=== PATIENT | female | born 1975 | race Two or more races ===

== ENCOUNTER 2018-04-25 06:13 | Day surgery (SDC) | payer OTHER ==
[~2018-04-25] VITALS: Ht 154.9 cm; Wt 58.1 kg
[~2018-04-25 06:13] MED LIST: BUPIVACAINE MPF 0.5% 30 ML VIAL. ONE; EPINEPHrine VIAL 30 MG/30 ML VIAL ONE; IBUP200T58 PO; LIDOCAINE 1% PF 30 ML VIAL. ONE
[2018-04-25 06:32] LABS: U PREG PATIENT NEGATIVE (NEG)
[2018-04-25] MEDS ORDERED: MORPHINE SULFATE 2 MG/ML VIAL. IV PRN (07:00)
[2018-04-25] MEDS ORDERED: fentaNYL PF VIAL 100 MCG/2 ML VIAL IV PRN ×2 (07:00)
[2018-04-25] MEDS ORDERED: HYDROmorphone 2 MG/ML VIAL IV PRN (07:00)
[2018-04-25] MEDS ORDERED: PROCHLORPERAZINE 10 MG/2 ML VIAL. IV PRN (07:00)
[2018-04-25] MEDS ORDERED: ONDANSETRON PF 4 MG/2 ML VIAL. IV PRN (07:00)
[2018-04-25] MEDS ORDERED: IV RINGERS,LACTATED 1000ML 1,000 ML IV SCH (07:00)
[2018-04-25] MEDS ORDERED: LIDOCAINE 1% PF 2 ML VIAL. ID PRN (07:00)
[2018-04-25] MEDS ORDERED: MIDAZOLAM HCL/PF 2 MG/2 ML VIAL. ONE (07:16)
[2018-04-25] MEDS ORDERED: fentaNYL PF VIAL 100 MCG/2 ML VIAL ONE ×2 (07:16→08:34)
[2018-04-25] MEDS ORDERED: LIDOCAINE 2% PF 5 ML VIAL. ONE (07:16)
[2018-04-25] MEDS ORDERED: ONDANSETRON PF 4 MG/2 ML VIAL. ONE (07:16)
[2018-04-25] MEDS ORDERED: PROPOFOL 20 ML IV ONE (07:16)
[2018-04-25] MEDS ORDERED: DEXAMETHASONE SOD PHOS 20 MG/5 ML VIAL. ONE (07:16)
--- NOTE | 2018-04-25 07:32 | DISCH ---
DISCHARGE INSTRUCTIONS Condition on Discharge Condition on Discharge: Stable Activity After Discharge Activity Instructions for Disc: Other ROM activity Other activity instructions: frequent ROM at knee Bathing Instructions: Shower-keep dressing dry Weight Bearing Status after Di: Non weight bearing Diet after Discharge Diet after Discharge: Regular Wound Incision Care Wound/Incision Care: Ice to area for comfort, Keep wound/cast CDI, Keep wound elevated, Change dressing Other wound/incision instructi: ok to change dressing after [address] after DC Call your doctor for: Concerns you may have Follow-Up Follow up with: Adria in 2 wks LARRY FELDER II, MD Apr 25, 2018 07:32
[2018-04-25] MEDS ORDERED: KETOROLAC 30 MG/ML INJ FOR OR. INJ ONE (08:02)
--- NOTE | 2018-04-25 08:40 | PDOC4 ---
Operative Note Operative Note Date of procedure: 04/25/2018 Surgeon: Dionisio Felder Preoperative diagnosis: Right knee acute cartilage injury Postoperative diagnosis: Same Procedure performed: Right knee arthroscopic microfracture of medial femoral condyle Anesthesia: Gen. Complications: None Blood loss: 5 mL Tourniquet time: Less than 30 minutes Findings: #1 intact cartilage throughout patellofemoral and lateral compartment #2 intact medial and lateral menisci without pathology #3 intact cruciate ligaments #4 No loose bodies #5 3 x 3 mm area of fibrotic appearing cartilage medial femoral condyle at about 10 of flexion #6 8 x 4 mm area of loose cartilage flap and exposed bone at about 60 of flexion at medial femoral condyle Reason for procedure: Patient is a very pleasant 42-year-old active female who had an acute knee injury while playing sports. I seen and evaluated her my outpatient orthopedic surgery clinic. Physical therapy and injections as well as anti-inflammatories did not afford her any relief and we had a discussion of the risks, benefits, alternatives to the above surgery procedure after MRI been obtained. Clinical and radiographic evidence were consistent with the preoperative diagnosis. She wished to proceed. Description of procedure: Patient was greeted in the preoperative area by myself for the correct extremity was verified and marked. She is taken to the operative suite and her antibiotics started as she was brought back. Once in the operating room, she was transferred gently supine to the operative room table and secured the bed with all pressure points padded. We attached a padded bump laterally at the hip and padded foot rest across the foot of bed to maintain her knee in 90 passively. Examination under anesthesia demonstrated knee that was stable to varus and valgus in extension and mid flexion, negative Nicki, negative pivot. Nonsterile tourniquet was taped in place to her left upper thigh. We then proceeded to prep and drape left lower extremity in our usual sterile fashion and conducted our standard preoperative timeout. I palpated and marked surface anatomy and made an incision for my standard anterolateral arthroscopic portal and introduced the blunt arthroscopic trocar followed by the camera into the suprapatellar pouch. I then conducted my diagnostic arthroscopy with the above-noted findings and upon entering the medial compartment used a spinal needle to localize an anteromedial portal, I incised skin in accordance with this and dilated this well. I introduced the probe and continued on with my diagnostic arthroscopy. I then returned to the medial compartment, she had a solid fibrotic appearing covering over the smaller lesion and I elected to not perform any interventions on this as I do not think microfracture would accomplish anything. I then further flexed the knee to allow improved access to the larger loose flap and debrided the loose flap down to bone, removing the calcified layer as well. He is comminution of shaver and open curettes to accomplish this. I then reintroduced the probe, the edges were stable to probing, it was a well shouldered lesion. I then using microfracture awl to create 3 holes in this defect, and demonstrated extravasation of marrow elements and blood holding suction adjacent to the lesion after microfracture. I then ensured that all loose debris was removed from the knee. I placed the camera and shaver into the suprapatellar pouch and performed vigorous palpation in the popliteal fossa and repeated aspiration maneuvers through the shaver. I then removed all excess arthroscopic fluid and the instrumentation. The portals were closed with simple interrupted 3-0 nylon. Xeroform and Russell sterile bulky soft dressing was applied followed by an Russell wrap. Patient tolerated surgery well. All counts correct 2 prior wound closure. No complications. Postoperative plan is nonweightbearing with frequent range of motion, I discussed this with her and her family member that accompanied her. She'll follow up with me in 2 weeks, sooner should a problem arise. DIONISIO FELDER II, MD Apr 25, 2018 08:40
[2018-04-25] MEDS ORDERED: DOCU-109 PO (08:51)
[2018-04-25] MEDS ORDERED: HYDR-3135 PO (08:52)
[2018-04-25] MEDS ORDERED: ONDA8TAB9 PO (08:52)
[2018-04-25] MEDS ORDERED: NAPR500T8 PO (08:53)
[2018-04-25] MEDS ORDERED: HYDROcodone/APAP 10/325 1 TAB TABLET PO ONE (09:00)
[2018-04-25 09:30] VITALS: BP 105/59
== END 2018-04-25 10:26 | disposition home or self-care (01) ==
LOC: SURG 06:13
PROVIDERS: ATTEND Orthopaedic Surgery Sports Medicine
DX: S83.32XA Tear of articular cartilage of left knee, current, initial encounter (principal); X58.XXXA Exposure to other specified factors, initial encounter; Y93.61 Activity, american tackle football; Y92.89 Other specified places as the place of occurrence of the external cause; Y99.8 Other external cause status
CPT/HCPCS: 29879; 81025; 97116; 97162; C1782; J0171; J0690; J1100; J1885; J2001; J2250; J2405; J2704; J3010; J3490

== ENCOUNTER → 2018-10-31 | Outpatient (CLI) | payer OTHER ==
[~2018-10-31] MED LIST changes: -BUPIVACAINE MPF 0.5% 30 ML VIAL. ONE; +DOCU-109 PO; -EPINEPHrine VIAL 30 MG/30 ML VIAL ONE; +HYDR-3135 PO; -LIDOCAINE 1% PF 30 ML VIAL. ONE; +NAPR500T8 PO; +ONDA8TAB9 PO
--- NOTE | 2018-10-31 17:26 | KCIC ---
MR of the left knee HISTORY: Left knee pain. Pain in the posterior knee. Previous surgery April 2018. TECHNIQUE: Routine multiplanar sequences are obtained. FINDINGS: No evidence of medial meniscal tear. Lateral meniscus is incompletely discoid, without tear. Anterior and posterior cruciate ligaments are intact. Medial collateral ligament is intact. Iliotibial band unremarkable. Fibular collateral ligament, biceps femoris tendon and popliteus tendon are intact. Extensor mechanism intact. Trace joint fluid. No acute articular cartilage defect. Minimal subchondral marrow edema at the medial femoral condyle. No acute fracture. No aggressive bone destruction. No significant Shepherd's cyst. Scarring within the infrapatellar fat. IMPRESSION: 1. 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 2. Minimal subchondral marrow edema at the lateral aspect of the weightbearing medial femoral condyle. Electronically signed by: Joshua Sanchez MD (10/31/2018 5:23 PM) [facility]
== END | disposition home or self-care (01) ==
LOC: KCIC MRI 11:34
PROVIDERS: ATTEND Orthopaedic Surgery Sports Medicine
DX: M23.362 Other meniscus derangements, other lateral meniscus, left knee (principal); M25.462 Effusion, left knee
CPT/HCPCS: 73721